=== PATIENT | male | born 1970 | race Caucasian/White ===

== ENCOUNTER 2021-07-10 02:11 | Emergency (ER) | payer MEDICAID ==
[~2021-07-10] VITALS: Ht 172.7 cm; Wt 68.0 kg
--- NOTE | 2021-07-10 02:20 | NUR ---
PATIENT BIB SON WITH C/O FLU LIKE SYMPTOMS, MOSTLY NAUSEA. CLOSE CONTACT WITH POSITIVE COVID. PATIENT DENIES SOB. PATIENT IS A/O X 4, RR EVEN AND UNLABORED. PATIENT VSS AT THIS TIME.
[2021-07-10] MEDS ORDERED: ONDANSETRON 4 MG TAB.RAPDIS ONE (03:25)
[2021-07-10] MEDS: ONDANSETRON 4 MG TAB.RAPDIS SL ONE (03:27)
[2021-07-10] MEDS ORDERED: ONDA4TAB5 PO (04:15)
[2021-07-10 04:19] VITALS: BP 121/74
--- NOTE | 2021-07-10 04:19 | NUR ---
Patient discharged to home in stable condition. Written and verbal after care instructions given. Patient verbalizes understanding of instruction.
== END 2021-07-10 04:21 | disposition home or self-care (01) ==
LOC: ER 02:11
DX: Z20.828 Contact with and (suspected) exposure to other viral communicable diseases (principal); R11.0 Nausea
CPT/HCPCS: 71045; 99283; Q0162